=== PATIENT | male | born 1945 | race Caucasian/White ===

== ENCOUNTER → 2016-06-10 | Outpatient (CLI) | payer OTHER | LOC: US 09:08 → ECHO 11:00 | DX: R01.1 Cardiac murmur, unspecified (principal); R09.89 Other specified symptoms and signs involving the circulatory and respiratory systems; I70.0 Atherosclerosis of aorta; Z13.6 Encounter for screening for cardiovascular disorders | CPT/HCPCS: ECHO; 76706; 93306; 93880 ==

== ENCOUNTER → 2016-06-22 | Outpatient (CLI) | payer OTHER | LOC: LAB 10:52 → CT 10:52 | DX: I65.29 Occlusion and stenosis of unspecified carotid artery (principal); R09.89 Other specified symptoms and signs involving the circulatory and respiratory systems; I65.22 Occlusion and stenosis of left carotid artery | CPT/HCPCS: 36415; 70498; 82565; 84520; J7050; Q9963 ==